=== PATIENT | female | born 1970 | race Caucasian/White ===

== ENCOUNTER 2021-02-12 21:12 | Emergency (ER) | payer OTHER ==
[2021-02-12 21:21] VITALS: BMI 27.9
[2021-02-13 00:19] VITALS: BP 137/78; TEMP 99.3
[2021-02-13 00:35] VITALS: PULSE 96
== END 2021-02-13 01:02 | disposition home or self-care (01) ==
LOC: JER 21:12
DX: S09.90XA Unspecified injury of head, initial encounter (principal); V49.40XA Driver injured in collision with unspecified motor vehicles in traffic accident, initial encounter
CPT/HCPCS: 70450-TC; 87804; 99284-25; C9803; U0003; U0005